=== PATIENT | female | born 1975 | race Caucasian/White ===

== ENCOUNTER 2020-03-17 05:37 | Inpatient (IN) | payer BC ==
[~2020-03-17] VITALS: Ht 157.5 cm; Wt 88.0 kg
[~2020-03-17 05:37] MED LIST: HYDR-3237 PO; HYDR-3245 PO; SULF1TAB24 PO
[2020-03-17] MEDS ORDERED: LACTATED RINGERS 1,000 ML IV SCH (06:32)
[2020-03-17] MEDS ORDERED: CHLORHEXIDINE 15 ML UDC MM STA (06:32)
[2020-03-17] MEDS ORDERED: BUPIVACAINE/PF 0.25% ONE (06:52)
[2020-03-17] MEDS ORDERED: EPINEPHRINE 1 MG/ML, 1ML ONE (06:52)
[2020-03-17] MEDS ORDERED: LIDOCAINE/PF 0.5% ,50ML ONE (06:52)
[2020-03-17] MEDS ORDERED: VANCOMYCIN 1,000 MG ONE (06:52)
[2020-03-17] MEDS ORDERED: NO MEDS PER PT (06:54)
[2020-03-17] MEDS ORDERED: SUCCINYLCHOLINE 20 MG/ML, 10ML ONE (07:04)
[2020-03-17] MEDS ORDERED: ONDANSETRON 2MG/ML, 2ML ONE (07:04)
[2020-03-17] MEDS ORDERED: FENTANYL PF 100 MCG/2ML ONE ×3 (07:04→12:03)
[2020-03-17] MEDS ORDERED: MIDAZOLAM 1 MG/ML, 2ML ONE (07:04)
[2020-03-17] MEDS ORDERED: PROPOFOL 10 MG/ML, 20ML ONE (07:04)
[2020-03-17] MEDS ORDERED: NEOSTIGMINE 1 MG/ML, 10ML ONE (07:04)
[2020-03-17] MEDS ORDERED: CEFAZOLIN 1,000 MG ONE (07:04)
[2020-03-17] MEDS ORDERED: GLYCOPYRROLATE 0.2MG/1ML, 5ML ONE (07:04)
[2020-03-17] MEDS ORDERED: DEXAMETHASONE 4 MG/ML, 1ML ONE (07:04)
[2020-03-17 07:08] LABS: HCG UR SG 1.023 (1.003-1.030)
[2020-03-17] MEDS ORDERED: PROMETHAZINE 25 MG/ML, 1ML IVPush PRN (08:00)
[2020-03-17] MEDS ORDERED: HYDROcodone/APAP 7.5-325MG/15ML UDC PO PRN (08:00)
[2020-03-17] MEDS ORDERED: METHOCARBAMOL 1,000 MG in DEXTROSE 5% 100 ML IV PRN (08:00)
[2020-03-17] MEDS ORDERED: DIAZEPAM 5 MG/ML, 2ML IVPush PRN (08:00)
[2020-03-17] MEDS ORDERED: MEPERIDINE/PF 25MG/0.5ML IVPush PRN (08:00)
[2020-03-17] MEDS ORDERED: KETOROLAC 30 MG/1 ML IVPush PRN (08:00)
[2020-03-17] MEDS ORDERED: HEPARIN 1,000 UNITS/ML, 30ML ONE (10:16)
[2020-03-17 10:21] LABS: BASOPHILS % (AUTO) 1 % (0-1); EOSINOPHILS % (AUTO) 1 % (1-7); LYMPHOCYTES % (AUTO) 35 % (22-44); MEAN CORPUSCULAR HEMOGLOBIN 21.4 pg (27.0-34.8); MEAN PLATELET VOLUME 7.3 fL (7.4-10.4); MONOCYTES % (AUTO) 3 % (2-9); NEUTROPHILS % (AUTO) 59 % (42-75); PLATELET COUNT 299 x10^3/uL (130-400); RED CELL DISTRIBUTION WIDTH 19.5 % (9.6-15.2)
[2020-03-17 10:24] LABS: MD NO
[2020-03-17 12:31] LABS: MEAN CORPUSCULAR HGB CONC 30.2 g/dL (32.4-35.8); MEAN PLATELET VOLUME 7.8 fL (7.4-10.4); PLATELET COUNT 268 x10^3/uL (130-400); RED CELL DISTRIBUTION WIDTH 21.2 % (9.6-15.2)
[2020-03-17] MEDS ORDERED: HYDROcodone/APAP 7.5-325MG/15ML UDC ONE (12:34)
[2020-03-17] MEDS ORDERED: HYDROmorphone 1 MG/ML, 1ML INJ ONE (12:34)
[2020-03-17] MEDS: HYDROmorphone 1 MG/ML, 1ML INJ IVPush PRN ×2 (12:38→12:47)
[2020-03-17] MEDS: FENTANYL PF 100 MCG/2ML IV PRN ×2 (12:41→12:51)
[2020-03-17 13:08] LABS: MD YES
[2020-03-17 13:10] LABS: BAND#(MANUAL) 0.81 x10^3/uL; BANDS%(MANUAL) 3 % (0-7); LYMPHS% (MANUAL) 7 % (22-44); SEG#(MANUAL) 24.39 x10^3/uL (1.8-6.8); SEGS% (MANUAL) 90 % (42-75)
[2020-03-17 13:11] LABS: <PLATELET ESTIMATE> ADEQUATE; <PLT MORPHOLOGY> NORMAL PLT MORPH; ANISOCYTOSIS 1+; HYPOCHROMIA 1+; MICROCYTOSIS 1+; OVALOCYTES 1+
[2020-03-17 14:15] VITALS: BP 99/64
[2020-03-17] MEDS ORDERED: ONDANSETRON 2MG/ML, 2ML IV PRN (14:30)
[2020-03-17] MEDS ORDERED: PROMETHAZINE 25 MG/ML, 1ML IM PRN (14:30)
[2020-03-17] MEDS ORDERED: SODIUM CHLORIDE 0.9% 1,000ML IV PRN (14:30)
[2020-03-17] MEDS ORDERED: MAGNESIUM HYDROXIDE 8%, 30ML UDC PO PRN (14:30)
[2020-03-17] MEDS ORDERED: BISACODYL 10 MG SUPP PR PRN (14:30)
[2020-03-17] MEDS ORDERED: HYDROcodone/APAP 10/325 MG TABLET PO PRN (14:30)
[2020-03-17] MEDS ORDERED: HYDROcodone/APAP 5/325 TABLET PO PRN (14:30)
[2020-03-17] MEDS ORDERED: PHARMACY MAY ADJ FOR RENAL FX MC PRN (14:30)
[2020-03-17] MEDS: CEFAZOLIN PMX 1GM/50ML 50 ML IVPB SCH (15:55)
[2020-03-17] MEDS: D5%-0.9% NACL+KCL 20MEQ 1,000 ML IV SCH (15:56)
[2020-03-17] MEDS ORDERED: EPHEDRINE 50 MG/ML, 1ML ONE (16:29)
[2020-03-17] MEDS ORDERED: SUGAMMADEX 200 MG/2 ML IVPush ONE (16:29)
[2020-03-17] MEDS ORDERED: ROCURONIUM 10MG/ML,5ML ONE (16:29)
[2020-03-17] MEDS ORDERED: PHENYLEPHRINE 10 MG/ML ONE (16:29)
[2020-03-17 20:36] VITALS: BP 90/54
[2020-03-17] MEDS: METHOCARBAMOL 750 MG in DEXTROSE 5% 100 ML IV SCH (20:40)
[2020-03-18 00:15] VITALS: BP 104/67
[2020-03-18] MEDS: CEFAZOLIN PMX 1GM/50ML 50 ML IVPB SCH (00:16)
[2020-03-18] MEDS: D5%-0.9% NACL+KCL 20MEQ 1,000 ML IV SCH ×3 (00:30→22:00)
[2020-03-18] MEDS: METHOCARBAMOL 750 MG in DEXTROSE 5% 100 ML IV SCH ×3 (04:33→20:27)
[2020-03-18 04:35] VITALS: BP 106/62
[2020-03-18 06:31] LABS: ANION GAP 5 mmol/L (5-15); CALCIUM 7.7 mg/dL (8.5-10.1); CHLORIDE 110 mmol/L (98-107)
[2020-03-18 06:41] LABS: BASOPHILS % (AUTO) 0 % (0-1); EOSINOPHILS % (AUTO) 0 % (1-7); LYMPHOCYTES % (AUTO) 11 % (22-44); MEAN CORPUSCULAR HEMOGLOBIN 22.5 pg (27.0-34.8); MEAN CORPUSCULAR HGB CONC 30.6 g/dL (32.4-35.8); MEAN PLATELET VOLUME 7.6 fL (7.4-10.4); MONOCYTES % (AUTO) 6 % (2-9); NEUTROPHILS % (AUTO) 83 % (42-75); PLATELET COUNT 215 x10^3/uL (130-400); RED BLOOD COUNT 4.02 x10^6/uL (3.82-5.3); RED CELL DISTRIBUTION WIDTH 20.3 % (9.6-15.2)
[2020-03-18 07:38] VITALS: BP 102/62
[2020-03-18 08:21] LABS: MD SCAN
[2020-03-18] MEDS: SENNA/DOCUSATE TABLET PO SCH (08:23)
[2020-03-18 14:13] VITALS: BP 104/65
[2020-03-18 20:30] VITALS: BP 105/63
[2020-03-19 02:20] VITALS: BP 93/54
[2020-03-19] MEDS: METHOCARBAMOL 750 MG in DEXTROSE 5% 100 ML IV SCH ×2 (04:21→12:30)
[2020-03-19 07:22] VITALS: BP 98/62
[2020-03-19] MEDS: SENNA/DOCUSATE TABLET PO SCH (08:24)
[2020-03-19 09:00] LABS: BASOPHILS % (AUTO) 1 % (0-1); EOSINOPHILS % (AUTO) 1 % (1-7); LYMPHOCYTES % (AUTO) 24 % (22-44); MEAN CORPUSCULAR HEMOGLOBIN 22.6 pg (27.0-34.8); MEAN CORPUSCULAR HGB CONC 31.1 g/dL (32.4-35.8); MONOCYTES % (AUTO) 10 % (2-9); NEUTROPHILS % (AUTO) 64 % (42-75); PLATELET COUNT 192 x10^3/uL (130-400); RED BLOOD COUNT 3.24 x10^6/uL (3.82-5.3); RED CELL DISTRIBUTION WIDTH 21.3 % (9.6-15.2)
[2020-03-19 09:10] LABS: ANION GAP 5 mmol/L (5-15); CALCIUM 7.8 mg/dL (8.5-10.1); CHLORIDE 111 mmol/L (98-107); CREATININE 0.72 mg/dL (0.55-1.02)
[2020-03-19] MEDS: D5%-0.9% NACL+KCL 20MEQ 1,000 ML IV SCH (09:26)
[2020-03-19 09:29] LABS: MD SCAN
[2020-03-19] MEDS ORDERED: ACETAMINOPHEN 325 MG TABLET PO PRN (12:30)
[2020-03-19 12:40] VITALS: BP 111/62
[2020-03-19] MEDS: METHOCARBAMOL 750 MG TABLET PO SCH ×2 (13:00→20:30)
[2020-03-19] MEDS: OXYcodone 5 MG/5 ML ORAL.SOL UDC PO PRN ×3 (15:49→23:38)
[2020-03-19 19:04] VITALS: BP 110/58
[2020-03-19] MEDS ORDERED: METHOCARBAMOL 750 MG TABLET PO SCH ×2 (20:30→21:30)
[2020-03-20 03:49] VITALS: BP 111/62
[2020-03-20] MEDS: OXYcodone 5 MG/5 ML ORAL.SOL UDC PO PRN ×3 (04:11→12:55)
[2020-03-20] MEDS: METHOCARBAMOL 750 MG TABLET PO SCH ×2 (04:11→12:55)
[2020-03-20 06:16] LABS: ANION GAP 4 mmol/L (5-15); CALCIUM 8.1 mg/dL (8.5-10.1); CHLORIDE 107 mmol/L (98-107)
[2020-03-20 06:18] LABS: CREATININE 0.58 mg/dL (0.55-1.02)
[2020-03-20 07:34] VITALS: BP 97/63
[2020-03-20] MEDS: SENNA/DOCUSATE TABLET PO SCH (08:21)
[2020-03-20 09:20] LABS: BASOPHILS % (AUTO) 1 % (0-1); EOSINOPHILS % (AUTO) 2 % (1-7); LYMPHOCYTES % (AUTO) 23 % (22-44); MEAN CORPUSCULAR HEMOGLOBIN 22.7 pg (27.0-34.8); MEAN CORPUSCULAR HGB CONC 31.4 g/dL (32.4-35.8); MEAN PLATELET VOLUME 7.5 fL (7.4-10.4); MONOCYTES % (AUTO) 8 % (2-9); NEUTROPHILS % (AUTO) 67 % (42-75); PLATELET COUNT 210 x10^3/uL (130-400); RED BLOOD COUNT 3.27 x10^6/uL (3.82-5.3); RED CELL DISTRIBUTION WIDTH 21.5 % (9.6-15.2)
[2020-03-20 09:26] LABS: MD NO
[2020-03-20 12:30] VITALS: BP 101/72
[2020-03-20] MEDS ORDERED: OXYC5CAP2 PO (12:49)
[2020-03-20] MEDS ORDERED: METH750T87 PO (12:51)
== END 2020-03-20 13:20 | disposition home or self-care (01) | DRG 460 ==
LOC: ORIP 05:37 → 3WST 14:02 → DCLOUNGE 03-20 13:08
PROVIDERS: ADMIT Orthopaedic Surgery Orthopaedic Surgery of the Spine; ATTEND Orthopaedic Surgery Orthopaedic Surgery of the Spine
PROC: 00NY0ZZ Release Lumbar Spinal Cord, Open Approach (ICD-10-PCS; 2020-03-17)
PROC: 01NB0ZZ Release Lumbar Nerve, Open Approach (ICD-10-PCS; 2020-03-17)
PROC: 0SB20ZZ Excision of Lumbar Vertebral Disc, Open Approach (ICD-10-PCS; 2020-03-17)
PROC: 4A11X4G Monitoring of Peripheral Nervous Electrical Activity, Intraoperative, External Approach (ICD-10-PCS; 2020-03-17)
PROC: 0SG00K1 Fusion of Lumbar Vertebral Joint with Nonautologous Tissue Substitute, Posterior Approach, Posterior Column, Open Approach (ICD-10-PCS; principal; 2020-03-17 07:30)
DX: M48.061 Spinal stenosis, lumbar region without neurogenic claudication (principal); Z20.828 Contact with and (suspected) exposure to other viral communicable diseases; M43.16 Spondylolisthesis, lumbar region
CPT/HCPCS: 36415; 72100; 80048; 81025; 85025; 86850; 86900; 86923; 87635; C1713; G0378; J0171; J0690; J1100; J1170; J1644; J2001; J2250; J2270; J2405; J2704; J2710; J3010; J3370; C1760; C1762; J0330; J2370; J2800; J3480; J7120; P9016